=== PATIENT | female | born 1990 | race Asian ===

== ENCOUNTER 2017-06-06 12:23 | Emergency (ER) | payer MEDICAID ==
--- NOTE | 2017-06-06 14:30 | EDM.PDOC ---
<Alma Mix - Last Filed: 06/06/17 16:46> ED HPI GENERAL MEDICAL PROBLEM - General Chief Complaint: Cardiovascular Problem Stated Complaint: NECKPAIN,FAST HEART RATE Time Seen by Provider: 06/06/17 12:50 Source of Information: Reports: Patient History Limitations: Reports: No Limitations - History of Present Illness INITIAL COMMENTS - FREE TEXT/NARRATIVE: The patient presents today with complaints of neck pain and palpitations. The neck pain started roughly four months ago and can be described as a "stiff ache " to the posterior aspect of her neck, which does not radiate. The pain is worse in the morning after waking up and when turning from side to side. She has been taking Aleve and using heating pads, which has been providing adequate relief. She denies any numbness, tingling, or weakness to her extremities. The palpitations started approximately 2-3 weeks ago, which start in the morning , before drinking caffeine, and gradually get better throughout the day. The patient does drink coffee about 3-4 days out of the week. Her palpitations occur daily, regardless of whether of not she drinks caffeine that day. The patient does admit to feeling anxious at times, but the palpitations do not always coincide with anxiety. She reports hair loss and fatigue. She denies any chest pain, pleuritic pain, lower extremity swelling, diaphoresis, or recent travel. She does not smoke and is not taking any medication, including control. Treatments INTERNAL CONTROLS MANAGER: Reports: Other (see below) Other Treatments INTERNAL CONTROLS MANAGER: Aleve Neck Pain Score (Numeric/FACES): 2 - Related Data Allergies Allergy/AdvReac Type Severity Reaction Status Date / Time No Known Allergies Allergy Verified 06/06/17 12:31 Home Meds: Home Meds . [No Known Home Meds] 06/06/17 [History] Past Medical History - Past Surgical History Oncologic Surgical History: Reports: Lumpectomy Other Oncologic Surgeries/Procedures: 2011 lump in left breast removed Social & Family History - Tobacco Use Smoking Status *Q: Former Smoker Years of Tobacco use: 9 Used Tobacco, but Quit: Yes Month Tobacco Last Used: 2 years ago Second Hand Smoke Exposure: No - Caffeine Use Caffeine Use: Reports: Coffee, Tea Other Caffeine Use: 4 times /week - Recreational Drug Use Recreational Drug Use: No ED ROS GENERAL - Review of Systems Constitutional: Reports: No Symptoms, Weight Gain (reports weight gain 10 pounds over the last 2 years ). Denies: Fever, Chills, Malaise, Weakness, Night Sweats, Diaphoresis, Decreased Appetite, Weight Loss Respiratory: Reports: Shortness of Breath (reports occasional SOB, but not always related to palpitations. ). Denies: Pleuritic Chest Pain, Cough, Hemoptysis Cardiovascular: Reports: Palpitations (reports palpitations occuring daily in the morning and improves throughout the day ). Denies: Chest Pain, Edema, Lightheadedness GI/Abdominal: Reports: Stool Incontinence Musculoskeletal: Reports: Neck Pain (neck pain, worse in the morning, improves with aleve and heat. ). Denies: Leg Pain Skin: Reports: No Symptoms Neurological: Reports: No Symptoms. Denies: Dizziness, Numbness, Paresthesia, Tingling ED EXAM, GENERAL - Physical Exam Exam Limited By: No Limitations General Appearance: Alert, Anxious (pt appears mildly anxious at bedside ) Head: Normocephalic Neck: Supple, Non-Tender (patient denies pain/tenderness with palpation. ), Full Range of Motion. No: Lymphadenopathy (L), Lymphadenopathy (R), Thyromegaly Respiratory/Chest: Lungs Clear, Normal Breath Sounds Cardiovascular: Normal Peripheral Pulses, Regular Rate, Rhythm. No: No Edema GI/Abdominal: Normal Bowel Sounds, Soft, Non-Tender Extremities: Pallor, Other (No lower extremity edema, warmth, or tenderness ). No: Leg Pain Neurological: Alert, Oriented Skin Exam: Warm, Dry, Intact EKG INTERPRETATION EKG Date: 06/06/17 Time: 13:53 Rhythm: Other (Sinus Tachycardia) Rate (Beats/Min): 100 [place]: Normal P-Wave: Present QRS: Normal ST-T: Normal QT: Normal EKG Interpretation Comments: EKG read by Dr. Garcia. No acute ischemic findings. Course - Vital Signs Last Recorded V/S: Last Vital Signs Temp 98.8 F 06/06/17 12:32 Pulse 109 H 06/06/17 12:32 Resp 15 06/06/17 15:45 BP 130/79 06/06/17 15:45 Pulse Ox 100 06/06/17 15:45 - Orders/Labs/Meds Orders: Active Orders 24 hr Category Date Time Status EKG 12 Lead [EKG Documentation Completion] [RC] STAT Care 06/06/17 13:35 Active Labs: Laboratory Tests 06/06/17 06/06/17 06/06/17 Range/Units 13:51 13:51 13:51 WBC 5.22 (3.98-10.04) K/mm3 RBC 3.86 L (3.98-5.22) M/mm3 Hgb 11.7 (11.2-15.7) gm/L Hct 34.8 (34.1-44.9) % MCV 90.2 (79.4-94.8) fl MCH 30.3 (25.6-32.2) pg MCHC 33.6 (32.2-35.5) g/dl RDW Std Deviation 36.3 L (36.4-46.3) fL Plt Count 259 (182-369) K/mm3 MPV 8.7 L (9.4-12.3) fl Neut % (Auto) 58.7 (34.0-71.1) % Lymph % (Auto) 25.5 (19.3-51.7) % [place] % (Auto) 14.4 H (4.7-12.5) % Eos % (Auto) 0.8 (0.7-5.8) Baso % (Auto) 0.4 (0.1-1.2) % Neut # (Auto) 3.07 (1.56-6.13) K/mm3 Lymph # (Auto) 1.33 (1.18-3.74) K/mm3 [place] # (Auto) 0.75 H (0.24-0.36) K/mm3 Eos # (Auto) 0.04 (0.04-0.36) K/mm3 Baso # (Auto) 0.02 (0.01-0.08) K/mm3 D-Dimer, Quantitative 0.41 (0.19-0.59) mg/L Sodium 141 (136-145) mEq/L Potassium 4.3 (3.5-5.1) mEq/L Chloride 106 (98-107) mEq/L Carbon Dioxide 28 (21-32) mEq/L Anion Gap 11.3 (5-15) BUN 13 (7-18) mg/dL Creatinine 0.6 (0.55-1.02) mg/dL Est Cr Clr Drug Dosing 124.49 mL/min Estimated GFR (MDRD) > 60 (>60) mL/min BUN/Creatinine Ratio 21.7 H (14-18) Glucose 109 H (74-106) mg/dL Calcium 9.2 (8.5-10.1) mg/dL Total Bilirubin 0.4 (0.2-1.0) mg/dL AST 21 (15-37) U/L ALT 44 (14-59) U/L Alkaline Phosphatase 46 (46-116) U/L Total Protein 6.6 (6.4-8.2) g/dl Albumin 3.5 (3.4-5.0) g/dl Globulin 3.1 gm/dL Albumin/Globulin Ratio 1.1 (1-2) Free T4 (0.76-1.46) ng/dL TSH 3rd Generation < 0.007 L (0.358-3.74) uIU/mL 06/06/17 Range/Units 13:51 WBC (3.98-10.04) K/mm3 RBC (3.98-5.22) M/mm3 Hgb (11.2-15.7) gm/L Hct (34.1-44.9) % MCV (79.4-94.8) fl MCH (25.6-32.2) pg MCHC (32.2-35.5) g/dl RDW Std Deviation (36.4-46.3) fL Plt Count (182-369) K/mm3 MPV (9.4-12.3) fl Neut % (Auto) (34.0-71.1) % Lymph % (Auto) (19.3-51.7) % [place] % (Auto) (4.7-12.5) % Eos % (Auto) (0.7-5.8) Baso % (Auto) (0.1-1.2) % Neut # (Auto) (1.56-6.13) K/mm3 Lymph # (Auto) (1.18-3.74) K/mm3 [place] # (Auto) (0.24-0.36) K/mm3 Eos # (Auto) (0.04-0.36) K/mm3 Baso # (Auto) (0.01-0.08) K/mm3 D-Dimer, Quantitative (0.19-0.59) mg/L Sodium (136-145) mEq/L Potassium (3.5-5.1) mEq/L Chloride (98-107) mEq/L Carbon Dioxide (21-32) mEq/L Anion Gap (5-15) BUN (7-18) mg/dL Creatinine (0.55-1.02) mg/dL Est Cr Clr Drug Dosing mL/min Estimated GFR (MDRD) (>60) mL/min BUN/Creatinine Ratio (14-18) Glucose (74-106) mg/dL Calcium (8.5-10.1) mg/dL Total Bilirubin (0.2-1.0) mg/dL AST (15-37) U/L ALT (14-59) U/L Alkaline Phosphatase (46-116) U/L Total Protein (6.4-8.2) g/dl Albumin (3.4-5.0) g/dl Globulin gm/dL Albumin/Globulin Ratio (1-2) Free T4 4.13 H (0.76-1.46) ng/dL TSH 3rd Generation (0.358-3.74) uIU/mL - Re-Assessments/Exams Free Text/Narrative Re-Assessment/Exam: Neck pain appears to be musculoskeletal in origin. Discussed further treatment options for neck pain, including massage and chiropractor. Recommended Dr. Suarez. She can continue using Aleve, heat, and trialling new pillows. Patient appearing mildly tachycardic (HR ranging from 90-115) and cannot be ruled out with PERC rule. She denies any pleuritic pain, LE edema, or swelling. Discussed case with Dr. Garcia and recommended ordering a D-dimer, CBC, and CMP. D-dimer is 0.41 and not elevated. CBC and CMP are unremarkable. TSH ordered due to palpitations occurring daily regardless of caffeine use. TSH level is low at 0.007. Free T4 4.13. Called clinic and Dr. Gomez will treat hyperthyroidism. HR has been anywhere from 90-110, beta blockers are not indicated at this time.Will refer further treatment to Dr. Baker. Appointment made for Saturday. Informed patient and family of testing results and future appointment. Educated on return precautions. 06/06/17 16:46 Departure - Departure Time of Disposition: 15:46 Disposition: Home, Self-Care 01 Condition: Good Clinical Impression: Hyperthyroidism, Neck pain Instructions: Hyperthyroidism Referrals: PCP,None [Primary Care Provider] - Forms: ED Department Discharge Additional Instructions: Follow-up with Dr. Gomez on June 10. Appointment is 3:00. Arrive at 2:30 for paperwork. Return to ER with any worsening symptoms or additional concerns. Continue Aleve for neck pain. Can use eating pad. Recommend Dr. Suarez, chiropractor, for further treatment. Phone number [phone]. - My Orders Last 24 Hours: My Active Orders 06/06/17 13:35 EKG 12 Lead [EKG Documentation Completion] [RC] STAT - Assessment/Plan Last 24 Hours: My Active Orders 06/06/17 13:35 EKG 12 Lead [EKG Documentation Completion] [RC] STAT <Estelle Ferguson - Last Filed: 06/06/17 18:17> ED HPI GENERAL MEDICAL PROBLEM - General Source of Information: Reports: Patient History Limitations: Reports: No Limitations ED ROS GENERAL - Review of Systems Review Of Systems: See Below ED EXAM, GENERAL - Physical Exam Exam: See Below Course - Re-Assessments/Exams Free Text/Narrative Re-Assessment/Exam: I also examined the patient. I agree with history and physical as documented by Alma Mix, PRODUCT SAFETY TESTER-student. I spoke with the clinic and Dr. Gomez is willing to see this patient in follow-up to start hyperthyroidism treatment and refer to endocrinology.
[2017-06-06 16:33] VITALS: BP 130/79
== END 2017-06-06 16:00 | disposition home or self-care (01) ==
LOC: JD.ED 12:23
DX: M54.2 Cervicalgia (principal); Z98.890 Other specified postprocedural states; Z87.891 Personal history of nicotine dependence; E05.90 Thyrotoxicosis, unspecified without thyrotoxic crisis or storm
CPT/HCPCS: 36415; 80053; 84439; 84443; 85025; 85379; 93005; 99283; 99285-25

== ENCOUNTER 2018-02-16 10:45 | Emergency (ER) | payer MEDICAID ==
[2018-02-16 11:04] VITALS: BP 127/76
[2018-02-16] MEDS ORDERED: methylPREDNISolone Sodium Succinate 125 MG/2 ML SDV IVPUSH ONE (11:41)
[2018-02-16] MEDS ORDERED: diphenhydrAMINE 50 MG/ML SDV IVPUSH ONE (11:41)
[2018-02-16] MEDS ORDERED: Famotidine 20 MG/2 ML SDV IVPUSH ONE (11:41)
[2018-02-16] MEDS ORDERED: Sodium Chloride 0.9% 10 ML Syringe FLUSH PRN (11:41)
--- NOTE | 2018-02-16 11:46 | EDM.PDOC ---
ED HPI GENERAL MEDICAL PROBLEM - General Chief Complaint: Allergic Reaction Stated Complaint: ALLERGIC REACTION Time Seen by Provider: 02/16/18 11:35 Source of Information: Reports: Patient History Limitations: Reports: No Limitations - History of Present Illness INITIAL COMMENTS - FREE TEXT/NARRATIVE: 28-year-old female presents for evaluation and treatment of hives. Patient reports that the hives stated yesterday. About 1 hour after eating a [employer] she developed a rash and provide us to her neck and ears. She presented to the [facility] clinic was started on prednisone and Claritin. She has been taking this as prescribed. She was started on prednisone 20 mg twice a day for 2 days and then taper down to once a day for 5 days. She states she's been taking this as prescribed her hives have been worsening. She now has hives and pruritus involving her face, neck, chest, back, abdomen, bilateral arms and legs. She appreciated some blistering underneath her breast but feels this is from her underwire bra. No other blistering noted. She denies any chest pain, shortness of breath, throat pain or swelling. States she's never had anything like this before. Duration: Getting Worse Location: Reports: Face, Neck, Chest, Abdomen, Back, Upper Extremity, Left, Upper Extremity, Right, Lower Extremity, Left, Lower Extremity, Right - Related Data Allergies Allergy/AdvReac Type Severity Reaction Status Date / Time No Known Allergies Allergy Verified 02/16/18 11:04 Home Meds: Home Meds EPINEPHrine [Epipen] 0.3 mg IM ASDIRECTED PRN #2 pen 02/16/18 [Rx] Famotidine [Pepcid] 20 mg PO BID #14 tab 02/16/18 [Rx] Methimazole 20 mg PO BID 02/16/18 [History] Prednisone [IJD: predniSONE] 40 mg PO WITHBREAKFAST #11 tab 02/16/18 [Rx] Propranolol [Inderal] 40 mg PO QID 02/16/18 [History] Selenium 100 mcg PO DAILY 02/16/18 [History] Past Medical History Endocrine/Metabolic History: Reports: Hyperthyroidism - Past Surgical History Female Surgical History: Reports: Breast Biopsy Oncologic Surgical History: Reports: Lumpectomy Other Oncologic Surgeries/Procedures: 2010 lump in left breast removed Social & Family History - Tobacco Use Smoking Status *Q: Former Smoker Years of Tobacco use: 9 Used Tobacco, but Quit: Yes Month/Year Tobacco Last Used: 2014 Second Hand Smoke Exposure: No - Caffeine Use Caffeine Use: Reports: Coffee Other Caffeine Use: 4 times /week - Recreational Drug Use Recreational Drug Use: No ED ROS ALLERGIC REACTION - Review of Systems Review Of Systems: See Below HEENT: Denies: Throat Pain, Throat Swelling Respiratory: Denies: Shortness of Breath Cardiovascular: Denies: Chest Pain Skin: Reports: Pruritis, Rash ED EXAM GENERAL NO PERIP PULSE - Physical Exam Exam: See Below Exam Limited By: No Limitations General Appearance: Alert, WD/WN, No Apparent Distress Nose: Normal Inspection Throat/Mouth: Normal Inspection, Normal Oropharynx, Normal Voice, No Airway Compromise, Other (no uvula swelling) Neck: Full Range of Motion Respiratory/Chest: No Respiratory Distress, Lungs Clear, Normal Breath Sounds Cardiovascular: Normal Peripheral Pulses, Regular Rate, Rhythm, No Murmur GI/Abdominal: Soft, Non-Tender Neurological: Alert, Oriented, Normal Cognition Psychiatric: Normal Affect, Normal Mood Skin Exam: Erythema (Blanching, non-blistering hives present to the scalp, neck , chest, back, abdomen bilateral. Palms and soles sparing) Course - Vital Signs Last Recorded V/S: Last Vital Signs Temp 36.9 C 02/16/18 11:02 Pulse 76 02/16/18 11:02 Resp 16 02/16/18 11:02 BP 127/76 02/16/18 11:02 Pulse Ox 100 02/16/18 11:02 - Orders/Labs/Meds Labs: Laboratory Tests 02/16/18 02/16/18 Range/Units 11:30 11:30 WBC 17.49 H (3.98-10.04) K/mm3 RBC 5.40 H (3.98-5.22) M/mm3 Hgb 14.9 (11.2-15.7) gm/L Hct 44.1 (34.1-44.9) % MCV 81.7 (79.4-94.8) fl MCH 27.6 (25.6-32.2) pg MCHC 33.8 (32.2-35.5) g/dl RDW Std Deviation 38.2 (36.4-46.3) fL Plt Count 309 (182-369) K/mm3 MPV 9.1 L (9.4-12.3) fl Neut % (Auto) 88.5 H (34.0-71.1) % Lymph % (Auto) 7.3 L (19.3-51.7) % [place] % (Auto) 3.9 L (4.7-12.5) % Eos % (Auto) 0 L (0.7-5.8) Baso % (Auto) 0.1 (0.1-1.2) % Neut # (Auto) 15.49 H (1.56-6.13) K/mm3 Lymph # (Auto) 1.28 (1.18-3.74) K/mm3 [place] # (Auto) 0.68 H (0.24-0.36) K/mm3 Eos # (Auto) 0.00 L (0.04-0.36) K/mm3 Baso # (Auto) 0.01 (0.01-0.08) K/mm3 Manual Slide Review Normal smear Sodium 140 (136-145) mEq/L Potassium 3.7 (3.5-5.1) mEq/L Chloride 103 (98-107) mEq/L Carbon Dioxide 26 (21-32) mEq/L Anion Gap 14.7 (5-15) BUN 13 (7-18) mg/dL Creatinine 0.6 (0.55-1.02) mg/dL Est Cr Clr Drug Dosing 108.43 mL/min Estimated GFR (MDRD) > 60 (>60) mL/min BUN/Creatinine Ratio 21.7 H (14-18) Glucose 116 H (74-106) mg/dL Calcium 10.0 (8.5-10.1) mg/dL Total Bilirubin 0.8 (0.2-1.0) mg/dL AST 15 (15-37) U/L ALT 24 (14-59) U/L Alkaline Phosphatase 154 H (46-116) U/L Total Protein 7.9 (6.4-8.2) g/dl Albumin 4.0 (3.4-5.0) g/dl Globulin 3.9 gm/dL Albumin/Globulin Ratio 1.0 (1-2) Meds: Medications Discontinued Medications Generic Name Dose Route Start Last Admin Trade Name Freq PRN Reason Stop Dose Admin Diphenhydramine HCl 50 mg 02/16/18 11:41 02/16/18 12:05 Benadryl IVPUSH 02/16/18 11:42 50 mg ONETIME ONE Administration Famotidine 20 mg 02/16/18 11:41 02/16/18 12:02 Pepcid IVPUSH 02/16/18 11:42 20 mg ONETIME ONE Administration Methylprednisolone Sodium Succinate 125 mg 02/16/18 11:41 02/16/18 12:05 Solu-Medrol IVPUSH 02/16/18 11:42 125 mg ONETIME ONE Administration Sodium Chloride 10 ml 02/16/18 11:41 02/16/18 12:05 Saline Flush FLUSH 10 ml ASDIRECTED PRN Administration Keep Vein Open - Re-Assessments/Exams Free Text/Narrative Re-Assessment/Exam: 02/16/18 1248 Checked on the patient, hives had significantly improved. She continues have some minor pruritus and hives, generalized but is significantly improved. Plan will be to discharge home today. White blood cell count is likely elevated from her prednisone she has been on recently. I will extend the course of prednisone and had any H2 blockers well. Discharge instructions as documented. 02/16/18 13:29 Checked on the patient. Hives nearly resolved. She is anxious to go home at this time. 02/16/18 13:59 Nursing staff came inform me that she is not developing hives to the bilateral calves. Recommend that she take a shower with cool water when she go home this could be something like a lotion or detergent she's been exposed to. Will continue with current plan of care and recommend Benadryl as needed for pruritus. Discharge instructions as documented. I will write her a prescription for an EpiPen due to the severity of her hives. She is instructed only to take this if she feels like she cannot breathe and feels like her throat is closing or swelling. Departure - Departure Time of Disposition: 13:21 Disposition: Home, Self-Care 01 Condition: Good Clinical Impression: Hives - Discharge Information Prescriptions: EPINEPHrine [Epipen] 0.3 mg IM ASDIRECTED PRN #2 pen PRN Reason: Shortness Of Breath Famotidine [Pepcid] 20 mg PO BID #14 tab Prednisone [IJD: predniSONE] 40 mg PO WITHBREAKFAST #11 tab Instructions: Hives Referrals: PCP,None [Primary Care Provider] - Forms: ED Department Discharge Additional Instructions: Take the Pepcid 1 tab twice a day for 7 days. Continue on your Claritin 1 tablet daily. May take benadryl 1-2 cap PO every 6 hours as needed for additional relive of hives and pruritus. New prednisone roxana as prescribed. Restart prednisone tomorrow. Twice a day for 3 days then 1 tab once a day for 3 days then one half tab once a day for 4 days. EpiPen as needed. Use only if you experience throat swelling and shortness of breath. Follow-up with your primary care provide within 2 weeks for recheck of your symptoms. Please return to the ER for symptoms change or worsen.r
== END 2018-02-16 14:00 | disposition home or self-care (01) ==
LOC: JD.ED 10:45
DX: L50.9 Urticaria, unspecified (principal); Z79.899 Other long term (current) drug therapy; Z87.891 Personal history of nicotine dependence
CPT/HCPCS: 36415; 80053; 85025; 96374; 96375; 99283; J1200; J2930; J7050